=== PATIENT | female | born 1960 | race Caucasian/White ===

== ENCOUNTER 2017-08-24 10:22 | Emergency (ER) | payer SELFPAY ==
[~2017-08-24] VITALS: Ht 162.6 cm; Wt 59.0 kg
--- NOTE | 2017-08-24 10:48 | ED Lower Extremity ---
General Stated Complaint: RT FOOT INJ Source: patient Exam Limitations: no limitations History of Present Illness Date Seen by Provider: Aug 24, 2017 Time Seen by Provider: 10:47 Initial Comments to ER with right foot pain after she was stepped on by a pitbull2 days ago. Onset: yesterday Severity: moderate Pain/Injury Location: right foot Method of Injury: direct blow Modifying Factors: Worse With Movement Allergies and Home Medications Patient Home Medication List Home Medication List Reviewed: Yes Constitutional: see HPI EENTM: see HPI Respiratory: no symptoms reported Cardiovascular: no symptoms reported Genitourinary: no symptoms reported Musculoskeletal: see HPI Skin: no symptoms reported Psychiatric/Neurological: No Symptoms Reported Past Mpqqkle-[id number]-Vrhkxz Hx Patient Social History Recent Foreign Travel: No Contact w/Someone Who Travel: No Physical Exam Vital Signs Vital Signs - First Documented 08/24/17 10:44 Temp 98.0 Pulse 79 Resp 18 B/P (MAP) 170/97 (121) Pulse Ox 98 O2 Delivery Room Air Capillary Refill : General Appearance: WD/WN, no apparent distress HEENT: PERRL/EOMI, normal ENT inspection Neck: non-tender, full range of motion Respiratory: no respiratory distress, no accessory muscle use Hips: bilateral hip non-tender, bilateral hip normal inspection, bilateral hip normal range of motion Legs: bilateral leg non-tender, bilateral leg normal inspection, bilateral leg normal range of motion Knees: bilateral knee non-tender, bilateral knee normal inspection, bilateral knee normal range of motion Ankles: bilateral ankle non-tender, bilateral ankle normal inspection, bilateral ankle normal range of motion Feet: bilateral foot normal inspection, bilateral foot normal range of motion; right foot other (pain over the distal fourth and fifth metatarsals without ecchymosis abrasion erythema laceration puncture wound or swelling.) Neurologic/Psychiatric: alert, normal mood/affect, oriented x 3 Skin: normal color, warm/dry Progress/Results/Core Measures Results/Orders My Orders Orders - BLAIR COPELAND APRN Foot, Right, 3 View (08/24/17 10:46) Vital Signs/I&O 08/24/17 10:44 Temp 98.0 Pulse 79 Resp 18 B/P (MAP) 170/97 (121) Pulse Ox 98 O2 Delivery Room Air Diagnostic Imaging Diagonstic Imaging: Xray Comments NAME: NATALIIA HARPER MED REC#: [id number] PT STATUS: REG ER : 1960 PHYSICIAN: BLAIR COPELAND APRN ADMIT DATE: 08/24/17/ER Draft Date of Exam:08/24/17 FOOT, RIGHT, 3 VIEW Indication: Right foot injury. Three views of the right foot show no fracture, dislocation or radiopaque foreign object. Impression: Negative right foot. Dictated on workstation # [id number] Dict: 08/24/17 1105 Trans: 08/24/17 1107 [facility] [id number] Interpreted by: RAJEEV RAMIREZ MD Electronically signed by: Departure Impression Primary Impression: Contusion of foot Disposition: 01 HOME, SELF-CARE Condition: Stable Departure-Patient Inst. Decision time for Depature: 11:09 Referrals: NO,LOCAL PHYSICIAN (PCP/Family) Primary Care Physician Patient Instructions: Contusion (DC) Add. Discharge Instructions: 1. Tylenol and Motrin for pain control 2. See your doctor next week for recheck 3. Return to ER for any concerns. BLAIR COPELAND APRN Aug 24, 2017 10:48
--- NOTE | 2017-08-24 11:08 | Diagnostic Imaging Report ---
Indication: Right foot injury. Three views of the right foot show no fracture, dislocation or radiopaque foreign object. Impression: Negative right foot. Dictated by: Dictated on workstation # [id number]
[2017-08-24 11:14] VITALS: BP 170/97
== END 2017-08-24 11:14 | disposition home or self-care (01) ==
LOC: EDUNIT# 10:22 → ER 10:26
DX: S90.31XA Contusion of right foot, initial encounter (principal); W55.89XA Other contact with other mammals, initial encounter
CPT/HCPCS: 73630